=== PATIENT | female | born 1970 | race Caucasian/White ===

== ENCOUNTER → 2021-02-28 | Outpatient (CLI) | payer OTHER | LOC: LAB 10:25 | DX: E04.1 Nontoxic single thyroid nodule (principal) | CPT/HCPCS: 84443; 84481; 86376 ==

== ENCOUNTER 2021-07-23 12:06 | Emergency (ER) | payer SELFPAY | END 2021-07-23 13:20 | disposition home or self-care (01) | LOC: ER1 12:06 | DX: S63.501A Unspecified sprain of right wrist, initial encounter (principal); E11.9 Type 2 diabetes mellitus without complications; Z88.0 Allergy status to penicillin; X58.XXXA Exposure to other specified factors, initial encounter | CPT/HCPCS: 73110; 73130; 99283 ==